=== PATIENT | male | born 1970 | race Caucasian/White ===

== ENCOUNTER 2018-09-20 00:38 | Observation (INO) ==
[2018-09-20] MEDS ORDERED: Isovue-370 500 ML BOTTLE IVP ONE (00:53)
--- NOTE | 2018-09-20 00:54 | Emergency Department Note ---
Disposition Clinical Impression: Right sided weakness, Right arm numbness Disposition: Admitted As Inpatient Condition: Good Time of Disposition: 03:28 Neuro HPI - General Chief Complaint: ED Neuro Symptoms/Deficit Stated Complaint: right side weakness/AMS Time Seen by Provider: 09/20/18 00:41 Source: patient Mode of arrival: ambulatory Limitations: no limitations Nursing Notes Reviewed: Yes Vital Signs Reviewed: Yes - History of Present Illness HPI Narrative: Patient is a 48-year-old male with past medical history of chronic benzo use and opioid abuse, Suboxone use. Presents today due to right upper extremity weakness, numbness and tingling. He states that he woke up at 4 AM on the morning of 09/19/18 with the symptoms. He says that he feels as though his right upper extremity is weak, he cannot lift it above his head, feels as though he cannot reach his face with his right upper extremity. Describes pins and needles sensation of the right upper extremity. He also noted some subjective weakness of the right lower extremity. Denies any other numbness, tingling, weakness, facial droop, slurred speech, visual deficit. He does admit to some mild blurred vision. Denies any previous history of stroke, any falls or injuries. He does note that he was recently weaned off chronic benzo's within the past few weeks. He is currently taking Suboxone. Denies any other nausea, vomiting, fevers, diarrhea, abdominal pain, chest pain, dyspnea. - Related Data Home Medications: Previous Rx's Medication Instructions Recorded RX: Clindamycin [Cleocin] 300 mg PO Q12HR #20 capsule 03/13/15 RX: TraMADol [Ultram] 50 mg PO QID PRN #20 tablet 03/13/15 Allergies/Adverse Reactions: Allergies Allergy/AdvReac Type Severity Reaction Status Date / Time No Known Allergies Allergy Verified 03/13/15 13:26 All systems ED: reviewed and negative except as stated. Constitutional: Denies: fever Cardiovascular: Denies: chest pain Respiratory: Denies: dyspnea Gastrointestinal: Denies: abdominal pain, nausea, vomiting, diarrhea Genitourinary: Denies: urgency, dysuria Neurological: Reports: weakness, numbness, paresthesias. Denies: headache Past Medical History - Past Medical History Attestation: Yes The following information was validated with the patient. Source: patient Medical history: Reports: other Surgical history: Reports: no surgical history - Social History Smoking Status: Current every day smoker Alcohol use: Reports: none Drug use: Reports: none Physical Exam - General Limitations: no limitations General appearance: alert, in no apparent distress - Head Head exam: atraumatic, normocephalic, normal inspection - Eye Eye exam: Present: normal appearance, PERRL, EOMI - ENT ENT exam: normal exam, normal oropharynx, mucous membranes moist - Neck Neck exam: Present: normal inspection, full ROM, trachea midline - Chest Chest inspection: Present: normal inspection, symmetric chest wall rise - Respiratory Respiratory exam: Present: normal lung sounds bilaterally - Cardiovascular Cardiovascular exam: Present: regular rate, normal rhythm, normal heart sounds - Abdominal Exam Abdominal exam: Present: soft, Non-Tender. Absent: tenderness, distention, guarding, rebound, rigidity - Extremities Exam Extremities exam: Present: normal inspection, full ROM. Absent: tenderness, pedal edema - Neurological Exam Neurological exam: Present: alert, oriented X3, CN II-XII intact. Absent: motor sensory deficit - Expanded Neurological Exam Patient oriented to: Present: person, place, time Speech: Present: fluid speech Cranial nerves: EOM function (II, III, IV, ): Normal, facial sensation (V): Normal, facial palsy (VII): Normal, spinal accessory function (XI): Normal, tongue deviation (XII): Normal Cerebellar function: finger to nose: Abnormal Right (will take finger towards nose but states he cannot touch it, no ataxia noted) Motor strength - LUE: 5/5 Motor strength - RUE: 5/5 Motor strength - LLE: 5/5 Motor strength - RLE: 5/5 Sensory exam upper extremity: light touch: Normal Sensory exam lower extremity: light touch: Normal Coma Scale Eye Opening: Spontaneous Coma Scale Motor Response: Obeys Commands Coma Scale Verbal Response: Oriented Coma Scale Total: 15 - Psychiatric Psychiatric exam: Present: normal affect, normal mood - Skin Skin exam: Present: warm, dry, intact, normal color Course Course Narrative: Physical exam shows an NIH score of 1 due to decreased sensation of the right upper showed a right lower 70. Patient fell strength in flexion and extension of the right upper extremity shoulder, head 5 mother baby rn strength bilaterally. No drift of the right upper extremity or right lower extremity on exam. When asked to touch his nose with his right upper extremity, patient was able to close his nose but states that he was not able to fully take his finger to his nose. No ataxia was noted during this period no other focal neurologic deficit. CTA of the head and neck, CT head noncontrast ordered along with basic bloodwork. The symptoms have been present since he awoke at 4 AM on the morning of 09/19. Patient does not meet TPA criteria. 15:09 No major lab abnormality. Troponin negative. CT angiogram head and neck were negative for any acute findings. Negative for any acute intracranial hemorrhage or mass effect. Patient was reassessed. He is still complaining of subjective right lower extremity weakness, right upper extremity weakness, numbness of the right upper extremity. Discussed admission for further possible stroke workup. He was agreeable with this plan. Angiography CT 09/20/18 00:53 IMPRESSION: Unremarkable CTA of the head and neck. No acute intracranial hemorrhage or mass effect. D/ / Lauro Sessions / Lauro Sessions Interpreting Provider: Lauro Sessions Neck CTA 09/20/18 00:53 IMPRESSION: Unremarkable CTA of the head and neck. No acute intracranial hemorrhage or mass effect. D/ / Lauro Sessions / Lauro Sessions Interpreting Provider: Lauro Sessions Vital Signs Temperature 98.5 F 09/20/18 00:42 Pulse Rate 81 09/20/18 00:42 Respiratory Rate 20 09/20/18 00:42 Blood Pressure 113/76 09/20/18 00:42 O2 Sat by Pulse Oximetry 99 09/20/18 00:42 Temperature 98.5 F 09/20/18 00:42 Pulse Rate 69 09/20/18 03:11 Respiratory Rate 15 09/20/18 03:11 Blood Pressure 130/97 09/20/18 03:11 O2 Sat by Pulse Oximetry 98 09/20/18 03:11 Oxygen Delivery Oxygen Delivery Room Air Neuro Symptoms/Deficit - MDM Narrative Medical decision making narrative: Physical exam shows an NIH score of 1 due to decreased sensation of the right upper showed a right lower 70. Patient fell strength in flexion and extension of the right upper extremity shoulder, head 5 mother baby rn strength bilaterally. No drift of the right upper extremity or right lower extremity on exam. When asked to touch his nose with his right upper extremity, patient was able to close his nose but states that he was not able to fully take his finger to his nose. No ataxia was noted during this period no other focal neurologic deficit. CTA of the head and neck, CT head noncontrast ordered along with basic bloodwork. The symptoms have been present since he awoke at 4 AM on the morning of 09/19. Patient does not meet TPA criteria. 15:09 No major lab abnormality. Troponin negative. CT angiogram head and neck were negative for any acute findings. Negative for any acute intracranial hemorrhage or mass effect. Patient was reassessed. He is still complaining of subjective right lower extremity weakness, right upper extremity weakness, numbness of the right upper extremity. Discussed admission for further possible stroke workup. He was agreeable with this plan. - Medical Records Medical records reviewed: Yes I reviewed the patient's medical records. - Lab Data Lab results reviewed: Yes I reviewed the patient's lab results. Result diagrams: 09/20/18 01:03 09/20/18 01:03 Lab Results 09/20/18 09/20/18 09/20/18 Range/Units 01:03 01:03 01:03 WBC 10.4 (4.3-11.1) K/mcL RBC 4.55 (4.19-5.50) M/mcL Hgb 14.8 (12.9-16.9) g/dL Hct 43.1 (37.5-50.1) % MCV 94.7 (83.0-100.0) fL MCH 32.5 (28.0-33.3) pg MCHC 34.3 (31.6-35.5) g/dL RDW 12.5 (11.5-14.5) % Plt Count 299 (140-400) K/mcL MPV 10.2 (9.4-12.4) fL PT 10.9 (9.4-12.1) Seconds INR 1.0 APTT 32.6 (26.0-36.0) Seconds Sodium 139 (136-145) mEq/L Potassium 3.4 L (3.5-5.1) mEq/L Chloride 106 (98-107) mEq/L Carbon Dioxide 27 (23-29) mEq/L BUN 10 (6-20) mg/dL Creatinine 0.72 (0.70-1.30) mg/dL Est GFR ( Amer) > 60 (> 60) Est GFR (Non-Af Amer) > 60 (> 60) BUN/Creatinine Ratio 14 (6-26) Glucose 123 H (70-105) mg/dL Calculated Osmolality 288 (280-300) Calcium 9.1 (8.6-10.3) mg/dL Troponin I < 0.03 (< 0.04) ng/mL - Radiology Data Radiology results reviewed: Yes I reviewed the patient's radiology results. Angiography CT 09/20/18 00:53 IMPRESSION: Unremarkable CTA of the head and neck. No acute intracranial hemorrhage or mass effect. D/ / Lauro Sessions / Lauro Sessions Interpreting Provider: Lauro Sessions Neck CTA 09/20/18 00:53 IMPRESSION: Unremarkable CTA of the head and neck. No acute intracranial hemorrhage or mass effect. D/ / Lauro Sessions / Lauro Sessions Interpreting Provider: Lauro Sessions Stroke Scale - Level of Consciousness LOC: Alert - LOC Questions LOC Questions: Answers both correctly - LOC Commands LOC Commands: Performs both correctly - Best Gaze Best Gaze: Normal - Visual Visual: No visual loss - Facial Palsy Facial Palsy: Normal - Motor Arms Motor Arm-Left: No drift for 10 seconds Motor Arm-Right: No drift for 10 seconds - Motor Legs Motor Leg-Left: No drift for 5 seconds Motor Leg-Right: No drift for 5 seconds - Limb Ataxia Limb Ataxia: Absent of affected limb too weak to perform exam - Sensory Sensory: Mild to moderate loss, "not as sharp" (RUE, RLE) - Best Language Best Language: No aphasia - Dysarthria Dysarthria: Normal - Extinction and Inattention Extinction and Inattention: Normal - NIHSS Total Score NIHSS Total Score: 1 TPA Checklist - LKW: 3-4.5 hrs Add. Warnings/Precautions Patient/family understanding: The patient/family members have been counseled and understood the risk, benefit, and alternatives of treatment. S.B.AOsmani - S.B.A.RJuan A Situation: Demographics, MOA Background: Presenting Complaint, Relevant PMH, Meds, & Allergies Assessment: Vital Signs, Course and respsone to treatment, Exam Concerns, Patien t/Family Expectation, Pertinant Lab Results Recommendation: Barrier(s) to disposition, Recommendation based on pending studies, treatments, or consults Pepe Report Given to: Dr. Mckay Cantu Repor Time: 03:29 Attestation Statement - Attestation Attestation: Resident Attestation: I examined this patient and my medical decision making was reviewed with the Resident Physician. I agree with the documented findings, disposition and treatment plan as described except to the extent set forth below. We independently had [id number] contact with the patient. Patient presents for evaluation of inability to move his right side. Patient states symptoms started at 4 AM. Patient has been weaning off both benzodiazepines as well as Suboxone. Overall patient states he was trying to wait it out. Patient has had greater than 12 hours symptoms. Patient will undergo CTA of the head neck to further evaluate for possible [facility] neurology intervention. CTA head and neck are negative and the symptoms persist patient will likely require admission for further investigation and management. Patient awake alert and oriented 3, patient is able to hold his arms up without pronator drift. Patient is able to flex his arm all the way to his nose. 5 out of 5 strength throughout the lower extremities. Patient states decreased sensation to the right arm as well as the right leg. Patient with continued symptoms. Workup in the emergency department negative. Patient may require MRI as well as neurology consult. Patient will be admitted for further management.
[2018-09-20 01:36] LABS: Hematocrit 43.1 % (37.5-50.1); Hemoglobin 14.8 g/dL (12.9-16.9); Mean Corpuscular HGB Conc 34.3 g/dL (31.6-35.5); Mean Corpuscular Hemoglobin 32.5 pg (28.0-33.3); Mean Corpuscular Volume 94.7 fL (83.0-100.0); Mean Platelet Volume 10.2 fL (9.4-12.4); Platelet Count 299 K/mcL (140-400); Red Blood Count 4.55 M/mcL (4.19-5.50); Red Cell Distribution Width 12.5 % (11.5-14.5)
[2018-09-20 01:40] LABS: BUN/Creatinine Ratio 14 (6-26); Blood Urea Nitrogen 10 mg/dL (6-20); Calcium 9.1 mg/dL (8.6-10.3); Carbon Dioxide 27 mEq/L (23-29); Chloride 106 mEq/L (98-107); Glucose 123 mg/dL (70-105); Osmolality,Calculated 288 (280-300); Potassium 3.4 mEq/L (3.5-5.1); Sodium 139 mEq/L (136-145); Troponin I < 0.03 ng/mL (< 0.04); eGFR For Non-African Americans > 60 (> 60)
[2018-09-20 01:44] LABS: Prothrombin Time 10.9 Seconds (9.4-12.1)
[2018-09-20 01:47] LABS: Activated Partial Thrombo Time 32.6 Seconds (26.0-36.0)
[2018-09-20] MEDS ORDERED: hydrOXYzine pamoate 25 MG CAPSULE PO ONE (02:06)
[2018-09-20 07:42] VITALS: BP 109/71
[2018-09-20] MEDS ORDERED: Naloxone 0.4 MG/ML INJ IVP PRN (08:13)
--- NOTE | 2018-09-20 08:58 | Internal Med History&Physical ---
Date of Encounter: 09/20/18 Time of Encounter: 08:00 Internal Medicine - H&P: HPI Chief complaint: Right-sided weakness/numbness Admitted From: Home Plans for Post Hospital Care: Home History of present illness: The patient is a 48-year-old male with past medical history of chronic benzo and opiate abuse. He takes Xanax at 1 mg by mouth 3 times a day. He takes daily Suboxone. He came to the emergency room shortly after midnight complaining of weakness and numbness in right extremitiesstarted psychiatric mental health nurse yesterday. He reported to has inability to raise his right hand above his head level, when standing. His walking has not been affected recently. I saw him shortly after admission to the hospital floor. He feels better. He seems to have good movements in all 4 extremities. He feels sleepy. He denies headache. Denies visual disturbances. He walked to his bathroom on a couple occasions. The patient has been taking Xanax since his early 20s. He was taking Percocet for more than 10 years; substituted with Suboxone several months ago. His low back pain seems to be under fair control. He takes a great height 100 mg by mouth 3 times a day. He tells me, that he ran out of his Xanax about 5 days ago. I checked the [facility] database of dispensed controlled medications. He received 90 tablets of alprazolam (1 mg tablets) and 90 tablets of Lyrica (100 mg tablets) on 09/16/18! He received 42 tablets of Suboxone on 09/03/18. PAST MEDICAL HX: Chronic benzo and opiates abuse. Chronic low back pain. PAST FAMILY HX: See below PAST SOCIAL HX: See below REVIEW OF SYSTEMS: All 14 organ systems were reviewed by me with the patient. Positive and pertinent negative findings are listed above. The rest of organ systems is negative. PHYSICAL EXAM: Skin: Free of rash and discoloration. Eyes: Sclera is white. There is no discharge from eyes. ENMT: Oral/pharyngeal mucosa is normal in appearance. There is no discharge from nose or ears. Respiratory: Normal breath sounds with no crackles and wheezes bilaterally. CV: Heart is regular with no gallop or murmur. GI: Abdomen is flat and soft with no palpable mass or visceromegaly. : There is no tenderness in patient's flanks bilaterally. Neuro exam: He seems to have good strength in upper and lower extremities. Finger-nose testing for ataxia reveals a lack of coordination of movements in close proximity of his nosebilaterally. He has normal eye movements. Psychiatric: He has normal affect. His thought process is appropriate to the situation. ADDITIONAL DATA: CT angiogram of head and neck is unremarkable. CBC is normal. BMP shows potassium of 3.4. Otherwise, is unremarkable. Troponin is normal. A/P: Chronic benzodiazepine/opiates abuse. Noncompliance with medical treatments. He needs to be under the care of drug therapeutic recreation specialist after the discharge. I will restart his Xanax hoping to see complete resolution of his symptoms. We will obtain MRI of brain. Weakness/numbness of right extremities. Seem to be subjective in nature. It is difficult to say that for sure. Therefore I will obtain MRI of his brain. Chronic low back pain. Pretty much under control. To continue Lyrica and Suboxone. Mild hypokalemia. I will give him supplemental potassium chloride by mouth. Past Med Surg Social Fam HX - Past Medical History Medical history: arthritis, fibromyalgia Additional medical history: HIATAL HERNIA. DEGENERATIVE DISC DISEASE Psychiatric history: anxiety - Past Surgical History Surgical History: no surgical history - Social History Smoking Status: Current every day smoker Packs per day: 0.5 Smokeless Tobacco Status: Yes (VAPE PEN) Alcohol use: none Drug use: none, marijuana - Family History Father Hx Family Respiratory Disorders: Yes (COPD) Mother Hx Family Cancer: Yes (MELANOMA) Brother Hx Family Cardiac Disorders: Yes (PACEMAKER) Internal Medicine - H&P: Meds ALPRAZolam [Xanax 1 MG Tablet] 1 mg PO TID 09/20/18 [History] Buprenorphine HCl/Naloxone HCl [Suboxone 12 mg-3 mg Sl Film] 1 each SL DAILY 09/20/18 [History] Pregabalin [Lyrica] 100 mg PO TID 09/20/18 [History] Allergy/AdvReac Type Severity Reaction Status Date / Time No Known Allergies Allergy Verified 03/13/15 13:26 All Systems PM: xx - Constitutional Vitals: Temp Pulse Resp BP Pulse Ox 97.9 F 75 17 109/71 94 09/20/18 07:40 09/20/18 07:40 09/20/18 07:40 09/20/18 07:40 09/20/18 07:40 General appearance: Present: A&O X 3, no acute distress, answers questions appropriately Exam: xx Internal Med - H&P Results - Labs CBC & Chem 7: 09/20/18 01:03 09/20/18 01:03 Labs: Short CBC 09/20/18 Range/Units 01:03 WBC 10.4 (4.3-11.1) K/mcL Hgb 14.8 (12.9-16.9) g/dL Hct 43.1 (37.5-50.1) % Plt Count 299 (140-400) K/mcL BMP 09/20/18 01:03 Sodium 139 Potassium 3.4 L Chloride 106 Carbon Dioxide 27 BUN 10 Creatinine 0.72 Glucose 123 H Calcium 9.1 Cardiac Enzymes 09/20/18 Range/Units 01:03 Troponin I < 0.03 (< 0.04) ng/mL - Impressions ITS Impressions Angiography CT 09/20/18 00:53 IMPRESSION: Unremarkable CTA of the head and neck. No acute intracranial hemorrhage or mass effect. D/ / Lauro Sessions / Lauro Sessions Interpreting Provider: Lauro Sessions Neck CTA 09/20/18 00:53 IMPRESSION: Unremarkable CTA of the head and neck. No acute intracranial hemorrhage or mass effect. D/ / Lauro Sessions / Lauro Sessions Interpreting Provider: Lauro Sessions - Assessment and Plan (1) Right sided weakness Current Visit: Yes Status: Acute (2) Benzodiazepine dependence Current Visit: Yes Status: Chronic (3) Chronic low back pain Current Visit: Yes Status: Chronic Qualifiers: Back pain laterality: midline Sciatica presence: without sciatica Qualified Code(s): M54.5 - Low back pain; G89.29 - Other chronic pain (4) Non compliance with medical treatment Current Visit: Yes Status: Acute (5) Hypokalemia Current Visit: Yes Status: Acute - Time Spent With Patient Total time spent is greater than 50% in coordination of care (as documented) at patient's floor/unit and/or counseling patient: 25 - 35 minutes
[2018-09-20] MEDS ORDERED: BUPRENORPHINE HCL SL SCH (09:00)
[2018-09-20] MEDS ORDERED: NALOXONE HCL SL SCH (09:00)
[2018-09-20] MEDS: Pregabalin 50 MG CAPSULE PO SCH ×2 (09:09→13:44)
[2018-09-20] MEDS: ALPRAZolam 1 MG TABLET PO SCH ×2 (09:09→13:44)
[2018-09-20 11:14] LABS: Bilirubin,Urine Negative (Negative); Blood,Urine Negative (Negative); Clarity,Urine Clear (Clear); Color,Urine Yellow (Yellow); Glucose,Urine (UA) Normal (Normal); Ketones,Urine Negative (Negative); Leukocyte Esterase,Urine Negative (Negative); Nitrite,Urine Negative (Negative); PH,Urine 7.5 pH Units (5.0-8.0); Protein,Urine Negative (Neg-Trace); Specific Gravity,Urine > 1.030 (1.010-1.025); Urobilinogen,Urine Normal (Normal)
[2018-09-20 11:20] LABS: Amphetamine Screen,Urine Negative ng/mL (Cutoff=1000); Barbiturate Screen,Urine Negative ng/mL (Cutoff=200); Benzodiazepines Screen,Urine Positive ng/mL (Cutoff=200); Cannabinoid Screen,Urine Positive ng/mL (Cutoff = 50); Cocaine Screen,Urine Negative ng/mL (Cutoff= 300); Opiate Screen,Urine Negative ng/mL (Cutoff=300); Phencyclidine Screen,Urine Negative ng/mL (Cutoff=25)
--- NOTE | 2018-09-20 16:37 | Discharge Summary ---
Date of Encounter: 09/20/18 Time of Encounter: 16:34 - Discharge Diagnosis (1) Right sided weakness Priority: Primary Status: Acute (2) Benzodiazepine dependence Priority: Primary Status: Chronic (3) Chronic low back pain Priority: Primary Status: Chronic Qualifiers: Back pain laterality: midline Sciatica presence: without sciatica Qualified Code(s): M54.5 - Low back pain; G89.29 - Other chronic pain (4) Non compliance with medical treatment Priority: Primary Status: Chronic (5) Hypokalemia Priority: Primary Status: Acute Hospital course: This 48-year-old man has had long-standing history of benzodiazepines and opiates abuse. We admitted him with questionable right-sided weakness. All his symptoms subsided after he was put back on his Xanax. He takes 1 mg by mouth 3 times a day. He told me, that he ran out of that medication a few days before this admission. The patient evidently got 90 tablets of Xanax 4 days ago. He claims, that somebody stole it. I released him home with normal neurological exam. Discharge discussed with: patient, nurse - Time Spent with Patient Total time spent providing and/or coordinating discharge services: Time spent: Less than 30 minutes - Discharge Medications Prescriptions: Continue Pregabalin [Lyrica] 100 mg PO TID ALPRAZolam [Xanax 1 MG Tablet] 1 mg PO TID Buprenorphine HCl/Naloxone HCl [Suboxone 12 mg-3 mg Sl Film] 1 each SL DAILY Home Medications: ALPRAZolam [Xanax 1 MG Tablet] 1 mg PO TID 09/20/18 [History] Buprenorphine HCl/Naloxone HCl [Suboxone 12 mg-3 mg Sl Film] 1 each SL DAILY 09/20/18 [History] Pregabalin [Lyrica] 100 mg PO TID 09/20/18 [History] Allergies/Adverse Reactions: Allergy/AdvReac Type Severity Reaction Status Date / Time No Known Allergies Allergy Verified 03/13/15 13:26 Date of admission: 09/20/18 03:38 Primary care physician: Eleuterio Martinez MD Discharging clinician: Dakota Avendaño Anticipated date of discharge: 09/20/18 - Constitutional Vitals: Temp Pulse Resp BP Pulse Ox 98.0 F 65 18 109/71 100 09/20/18 11:15 09/20/18 11:15 09/20/18 11:15 09/20/18 11:15 09/20/18 11:15 General appearance: Present: A&O X 3, no acute distress, answers questions appropriately Exam: xx - Patient Status Disposition: Home, Self-Care Condition: Good Functional capacity at discharge: independent ambulation Overall status at discharge: patient is back to baseline - Discharge Instructions Follow Up With: Eleuterio Martinez MD [Primary Care Provider] - (Follow up has been requested) - Diet and Activity Activity: increase activity as tolerated Diet: advance to your usual diet - VTE Reasons for not Prescribing Prophylaxis: Treatment not Indicated - Low risk for VTE Deep Vein Thrombosis/Pulmonary Embolism Present on Admission: No
--- NOTE | 2018-09-25 05:52 | Electrocardiograph Report ---
[place] [employer] Test Date: 2018-09-20 Pat Name: Arie Don Department: [id number] Room: 3B39 Gender: M Wad Impregnator: : 1970 Requested By: Dirk Stock Order Number: [id number] Reading MD: Eleuterio Martinez Measurements Intervals [place] Rate: 82 P: 23 KS: 159 QRS: -51 QRSD: 98 T: -1 QT: 362 QTc: 423 Interpretive Statements Sinus rhythm Electronically Signed On 09-25-2018 5:50:57 EDT by Eleuterio Martinez
== END 2018-09-20 16:49 | disposition home or self-care (01) ==
LOC: EMEROOARM 00:38 → 3BNU 00:38
PROVIDERS: ADMIT Internal Medicine; ATTEND Internal Medicine